=== PATIENT | male | born 1960 | race Caucasian/White ===

== ENCOUNTER 2018-12-31 19:49 | Observation (INO) ==
[2018-12-31 21:43] LABS: Hematocrit 47.2 % (37.5-50.1); Hemoglobin 16.1 g/dL (12.9-16.9); Mean Corpuscular HGB Conc 34.1 g/dL (31.6-35.5); Mean Corpuscular Hemoglobin 29.7 pg (28.0-33.3); Mean Corpuscular Volume 87.1 fL (83.0-100.0); Mean Platelet Volume 10.2 fL (9.4-12.4); Platelet Count 260 K/mcL (140-400); Red Blood Count 5.42 M/mcL (4.19-5.50); Red Cell Distribution Width 13.2 % (11.5-14.5)
--- NOTE | 2018-12-31 22:02 | Emergency Department Note ---
Disposition Clinical Impression: Pyelonephritis Chest pain Qualifiers: Chest pain type: unspecified Qualified Code(s): R07.9 - Chest pain, unspecified Disposition: Admitted As Inpatient Condition: Good Referrals: Jose Wilson MD [Primary Care Provider] - Forms: ED Satisfaction Letter Time of Disposition: 23:48 General Adult HPI - General Chief complaint: ED Fever Stated complaint: high fever has fluid on brain Time Seen by Provider: 12/31/18 20:22 Source: patient Limitations: no limitations Nursing Notes Reviewed: Yes Vital Signs Reviewed: Yes - History of Present Illness HPI Narrative: Patient complains of chills and breaking out into a sweat with some vague chest pain a couple hours ago at home. No prodromal symptoms this morning or this afternoon. 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 He has no new headache, no nausea, no new neurological symptoms today. Again his only new symptoms are chest pain and diaphoresis which has now resolved. On my examination he is at baseline Onset (ago): hour(s) Location: chest Radiation: non-radiation Pain Severity: mild Pain Scale: 1 Quality: aching Consistency: intermittent, now resolved Improves with: nothing Worsens with: nothing Associated symptoms: Reports: chest pain, diaphoresis. Denies: cough, loss of appetite, malaise, nausea/vomiting - Related Data Allergies Allergy/AdvReac Type Severity Reaction Status Date / Time No Known Allergies Allergy Verified 12/31/18 20:35 Constitutional: Reports: fever, chills Eyes: Denies: eye pain, eye discharge, vision change ENT ED: Denies: ear pain, throat pain, dental pain, hearing loss, epistaxis, con gestion, dysphagia Cardiovascular: Reports: chest pain Respiratory: Denies: cough, dyspnea, wheezes, hemoptysis, stridor Gastrointestinal: Denies: abdominal pain, nausea, vomiting, diarrhea, constipation, hematemesis, melena, hematochezia Genitourinary: Denies: urgency, dysuria, frequency, hematuria Musculoskeletal: Denies: back pain, neck pain, arthralgia, myalgia Integumentary: Denies: rash, abrasion, lesions Neurological: Denies: headache, weakness, numbness, paresthesias, confusion, abnormal gait, vertigo Psychiatric: Denies: anxiety, depression, suicidal thoughts, homicidal thoughts, auditory hallucinations, visual hallucinations Endocrine: Denies: fatigue Hematological/Lymphatic: Denies: easy bleeding, easy bruising Allergic/Immunologic: Denies: facial swelling, urticaria Past Medical History - Past Medical History Medical history: Reports: hypertension - Social History Smoking Status: Never smoker Smokeless Tobacco Status: No Alcohol use: Reports: none Drug use: Reports: none Physical Exam - General Limitations: no limitations General appearance: alert, in no apparent distress - Head Head exam: atraumatic, normocephalic, normal inspection - Eye Eye exam: Present: normal appearance, PERRL, EOMI - Expanded Eye Exam Pupils: Left: reactive - ENT ENT exam: normal exam, normal oropharynx, mucous membranes moist - Expanded ENT Exam External ear exam: Present: normal external inspection Mouth exam: Present: normal external inspection Teeth exam: Present: normal inspection Throat exam: Present: normal inspection - Neck Neck exam: Present: normal inspection, full ROM, trachea midline - Chest Chest inspection: Present: normal inspection, symmetric chest wall rise - Respiratory Respiratory exam: Present: normal lung sounds bilaterally - Cardiovascular Cardiovascular exam: Present: regular rate, normal rhythm, normal heart sounds - Abdominal Exam Abdominal exam: Present: soft, Non-Tender. Absent: tenderness, distention, guarding, rebound, rigidity - Extremities Exam Extremities exam: Present: normal inspection, full ROM. Absent: tenderness, pedal edema - Expanded Upper Extremity Exam Shoulder exam: Present: normal inspection, full ROM Arm exam: Present: normal inspection, full ROM Elbow exam: Present: normal inspection, full ROM Forearm/Wrist exam: Present: normal inspection, full ROM Hand exam: Present: normal inspection, full ROM Vascular exam: Normal: capillary refill, radial pulse - Expanded Lower Extremity Exam Hip/Pelvis exam: Present: normal inspection, full ROM Upper leg exam: Present: normal inspection, full ROM Knee exam: Present: normal inspection, full ROM Lower leg exam: Present: normal inspection, full ROM Ankle exam: Present: normal inspection, full ROM Foot/toe exam: Present: normal inspection, full ROM Neurovascular/Tendon exam: Absent: motor deficit, sensory deficit, tendon deficit - Back Exam Back exam: Present: normal inspection, full ROM. Absent: tenderness - Neurological Exam Neurological exam: Present: alert, oriented X3 - Expanded Neurological Exam Patient oriented to: Present: person, place, time Coma Scale Eye Opening: Spontaneous Coma Scale Motor Response: Obeys Commands Coma Scale Verbal Response: Oriented Coma Scale Total: 15 - Psychiatric Psychiatric exam: Present: normal affect, normal mood - Skin Skin exam: Present: warm, dry, intact, normal color Course Vital Signs Temperature 99.7 F H 12/31/18 20:30 Pulse Rate 105 12/31/18 20:30 Respiratory Rate 18 12/31/18 20:30 Blood Pressure 155/93 12/31/18 20:30 O2 Sat by Pulse Oximetry 97 12/31/18 20:30 Temperature 99.7 F H 12/31/18 20:30 Pulse Rate 105 12/31/18 20:30 Respiratory Rate 18 12/31/18 20:30 Blood Pressure 155/93 12/31/18 20:30 O2 Sat by Pulse Oximetry 97 12/31/18 20:30 Oxygen Delivery Oxygen Delivery Room Air Medical Decision Making - Lab Data Result diagrams: 12/31/18 21:27 12/31/18 21:27 Lab Results 12/31/18 12/31/18 12/31/18 Range/Units 21:27 21:27 21:27 WBC 19.5 H (4.3-11.1) K/mcL RBC 5.42 (4.19-5.50) M/mcL Hgb 16.1 (12.9-16.9) g/dL Hct 47.2 (37.5-50.1) % MCV 87.1 (83.0-100.0) fL MCH 29.7 (28.0-33.3) pg MCHC 34.1 (31.6-35.5) g/dL RDW 13.2 (11.5-14.5) % Plt Count 260 (140-400) K/mcL MPV 10.2 (9.4-12.4) fL Sodium 138 (136-145) mEq/L Potassium 3.3 L (3.5-5.1) mEq/L Chloride 102 (98-107) mEq/L Carbon Dioxide 23 (23-29) mEq/L BUN 15 (6-20) mg/dL Creatinine 1.06 (0.70-1.30) mg/dL Est GFR ( Amer) > 60 (> 60) Est GFR (Non-Af Amer) > 60 (> 60) BUN/Creatinine Ratio 14 (6-26) Glucose 128 H (70-105) mg/dL Calculated Osmolality 288 (280-300) Lactic Acid 1.9 (0.5-2.2) mmol/L Calcium 9.4 (8.6-10.3) mg/dL Total Bilirubin 0.8 (0.3-1.0) mg/dL Direct Bilirubin 0.1 (0.0-0.2) mg/dL Indirect Bilirubin 0.7 (0.0-1.2) mg/dL AST 25 (13-39) Units/L ALT 55 H (7-52) Units/L Alkaline Phosphatase 109 H (34-104) Units/L Troponin I < 0.03 (< 0.04) ng/mL Serum Total Protein 7.0 (6.4-8.9) g/dL Albumin 4.8 (3.5-5.7) g/dL Globulin 2.2 L (2.4-3.5) g/dL Albumin/Globulin Ratio 2.2 (1.1-2.2) Lipase 21 (11-82) Units/L Urine Color (Yellow) Urine Clarity (Clear) Urine pH (5.0-8.0) pH Units Ur Specific [place] (1.010-1.025) Urine Protein (Neg-Trace) mg/dL Urine Glucose (UA) (Normal) mg/dL Urine Ketones (Negative) mg/dL Urine Blood (Negative) Urine Nitrite (Negative) Urine Bilirubin (Negative) Urine Urobilinogen (Normal) mg/dL Ur Leukocyte Esterase (Negative) Urine Microscopic RBC (0-3) per hpf Urine Microscopic WBC (0-3) per hpf Ur Squamous Epith Cells (None-Few) per lpf Urine Bacteria (None-Few) per hpf 12/31/18 Range/Units 22:15 WBC (4.3-11.1) K/mcL RBC (4.19-5.50) M/mcL Hgb (12.9-16.9) g/dL Hct (37.5-50.1) % MCV (83.0-100.0) fL MCH (28.0-33.3) pg MCHC (31.6-35.5) g/dL RDW (11.5-14.5) % Plt Count (140-400) K/mcL MPV (9.4-12.4) fL Sodium (136-145) mEq/L Potassium (3.5-5.1) mEq/L Chloride (98-107) mEq/L Carbon Dioxide (23-29) mEq/L BUN (6-20) mg/dL Creatinine (0.70-1.30) mg/dL Est GFR ( Amer) (> 60) Est GFR (Non-Af Amer) (> 60) BUN/Creatinine Ratio (6-26) Glucose (70-105) mg/dL Calculated Osmolality (280-300) Lactic Acid (0.5-2.2) mmol/L Calcium (8.6-10.3) mg/dL Total Bilirubin (0.3-1.0) mg/dL Direct Bilirubin (0.0-0.2) mg/dL Indirect Bilirubin (0.0-1.2) mg/dL AST (13-39) Units/L ALT (7-52) Units/L Alkaline Phosphatase (34-104) Units/L Troponin I (< 0.04) ng/mL Serum Total Protein (6.4-8.9) g/dL Albumin (3.5-5.7) g/dL Globulin (2.4-3.5) g/dL Albumin/Globulin Ratio (1.1-2.2) Lipase (11-82) Units/L Urine Color Dark Yellow (Yellow) Urine Clarity Cloudy A (Clear) Urine pH 6.0 (5.0-8.0) pH Units Ur Specific [place] 1.024 (1.010-1.025) Urine Protein 30 H (Neg-Trace) mg/dL Urine Glucose (UA) Normal (Normal) mg/dL Urine Ketones Trace H (Negative) mg/dL Urine Blood Negative (Negative) Urine Nitrite Negative (Negative) Urine Bilirubin Small H (Negative) Urine Urobilinogen 2.0 H (Normal) mg/dL Ur Leukocyte Esterase Moderate H (Negative) Urine Microscopic RBC 0-3 (0-3) per hpf Urine Microscopic WBC 5-15 H (0-3) per hpf Ur Squamous Epith Cells Many H (None-Few) per lpf Urine Bacteria Many H (None-Few) per hpf
[2018-12-31 22:04] LABS: BUN/Creatinine Ratio 14 (6-26); Blood Urea Nitrogen 15 mg/dL (6-20); Calcium 9.4 mg/dL (8.6-10.3); Carbon Dioxide 23 mEq/L (23-29); Chloride 102 mEq/L (98-107); Glucose 128 mg/dL (70-105); Osmolality,Calculated 288 (280-300); Potassium 3.3 mEq/L (3.5-5.1); Sodium 138 mEq/L (136-145); eGFR For Non-African Americans > 60 (> 60)
[2018-12-31 22:05] LABS: Troponin I < 0.03 ng/mL (< 0.04)
[2018-12-31 22:29] LABS: Bilirubin,Urine Small (Negative); Blood,Urine Negative (Negative); Clarity,Urine Cloudy (Clear); Color,Urine Dark Yellow (Yellow); Glucose,Urine (UA) Normal (Normal); Ketones,Urine Trace mg/dL (Negative); Leukocyte Esterase,Urine Moderate (Negative); Nitrite,Urine Negative (Negative); Protein,Urine 30 mg/dL (Neg-Trace); Specific Gravity,Urine 1.024 (1.010-1.025)
[2018-12-31 22:31] LABS: Bacteria,Urine Many per hpf (None-Few); RBC,Urine 0-3 per hpf (0-3); Squamous Epithelial Cell,Urine Many per lpf (None-Few)
[2018-12-31 23:11] LABS: Alanine Aminotransferase 55 Units/L (7-52); Albumin 4.8 g/dL (3.5-5.7); Albumin/Globulin Ratio 2.2 (1.1-2.2); Alkaline Phosphatase 109 Units/L (34-104); Aspartate Amino Transferase 25 Units/L (13-39); Bilirubin,Direct 0.1 mg/dL (0.0-0.2); Bilirubin,Indirect 0.7 mg/dL (0.0-1.2); Bilirubin,Total 0.8 mg/dL (0.3-1.0); Globulin 2.2 g/dL (2.4-3.5); Lipase 21 Units/L (11-82)
[2018-12-31] MEDS ORDERED: levoFLOXacin 500 MG TABLET PO ONE (23:38)
[2018-12-31] MEDS ORDERED: Aspirin 325 MG TABLET PO ONE (23:38)
[2018-12-31] MEDS ORDERED: cefTRIAXone 1,000 MG in 0.9 % Sodium Chloride Mini Bag 100 ML IVPB ONE (23:55)
[2019-01-01] MEDS ORDERED: Naloxone 0.4 MG/ML INJ IVP PRN (07:46)
[2019-01-01] MEDS ORDERED: traMADol 50 MG TABLET PO PRN (07:46)
[2019-01-01 07:55] VITALS: BP 151/79
[2019-01-01 08:42] LABS: Chol/HDL Ratio 3.7 (0-4.9)
--- NOTE | 2019-01-01 08:59 | Internal Med History&Physical ---
Date of Encounter: 01/01/19 Time of Encounter: 08:56 Internal Medicine - H&P: HPI Chief complaint: chills/fever. Plans for Post Hospital Care: Home History of present illness: Mr. Wheeler is a 58 year old male PHM of HTN and a benign brain tumor. Patient presented to the ED due to chills/fever. Patient reports yesterday at around 3pm he started feeling some cold chills, her granddaughter checked his temperature and it was 101.5. and the decided to come to the ED to be checked. Patient denies dysuria, frequency or urgency but report supra-pubic abdominal pain for the past couple of days. He denies nausea or vomiting. Denies chest pain or s hortness of breath. denies sick contacts. Past Med Surg Social Fam HX - Past Medical History Medical history: hypertension - Past Surgical History Additional surgical history: brain surgery in the cerebellum, cyst on groin removed - Social History Smoking Status: Never smoker Smokeless Tobacco Status: Yes Alcohol use: none Drug use: none Internal Medicine - H&P: Meds Allergy/AdvReac Type Severity Reaction Status Date / Time No Known Allergies Allergy Verified 12/31/18 20:35 All Systems PM: A 10-system review of systems was performed and is negative for pertinent findings except as documented above in the HPI. - Constitutional Constitutional: chills, fever(s), malaise, no weakness - EENT Eyes: no irritation, no tunnel vision - Cardiovascular Cardiovascular ROS IM: no chest pain, no dyspnea, no dyspnea on exertion, no lightheadedness, no orthopnea, no palpitations, no paroxysmal nocturnal dyspnea - Respiratory Respiratory: no cough, no hemoptysis, no chest congestion - Gastrointestinal Gastrointestinal: no abdominal pain, no nausea, no vomiting - Genitourinary Genitourinary ROS male: no dysuria, no urinary frequency, no urinary hesitancy, no urinary incontinence, no urinary urgency - Musculoskeletal Musculoskeletal ROS IM: no atrophy, no numbness, no tingling - Integumentary Integumentary IM: no erythema - Neurological Neurological ROS: no frequent falls - Psychiatric Psychiatric: no anhedonia, no depression, no irritability - Endocrine Endocrine IM: no cold intolerance, no excessive sweating - Hematologic/Lymphatic Hematologic/Lymphatic: no lymphadenopathy - Allergic/Immunologic Allergic/Immunologic: no GI upset with certain foods - Constitutional Vitals: Temp Pulse Resp BP Pulse Ox 98.0 F 80 15 151/79 95 01/01/19 07:51 01/01/19 07:51 01/01/19 07:51 01/01/19 07:51 01/01/19 07:51 Exam: Vitals: Reviewed General: Obese, Alert and oriented x4. In no distress. Skin: Normal color, no rash, no lesions. HEENT: EOM, pupils equal, round and reactive. Cardiovascular: RRR, normal S1 & S2, no rubs, murmurs or gallops. Lungs: CTA b/l, no wheezes or crackles. Abdomen: Soft, non-tender, no rigidity. Extremities: No deformity, no edema or tenderness, no joint swelling or clubb ing. Neurological: Normal cognition and motor skills. Rest of the physical exam is non contributory Internal Med - H&P Results - Labs CBC & Chem 7: 12/31/18 21:27 12/31/18 21:27 Labs: Short CBC 12/31/18 Range/Units 21:27 WBC 19.5 H (4.3-11.1) K/mcL Hgb 16.1 (12.9-16.9) g/dL Hct 47.2 (37.5-50.1) % Plt Count 260 (140-400) K/mcL BMP 12/31/18 21:27 Sodium 138 Potassium 3.3 L Chloride 102 Carbon Dioxide 23 BUN 15 Creatinine 1.06 Glucose 128 H Calcium 9.4 Cardiac Enzymes 12/31/18 01/01/19 Range/Units 21:27 08:14 Troponin I < 0.03 < 0.03 (< 0.04) ng/mL Liver Function 12/31/18 Range/Units 21:27 Total Bilirubin 0.8 (0.3-1.0) mg/dL Direct Bilirubin 0.1 (0.0-0.2) mg/dL AST 25 (13-39) Units/L ALT 55 H (7-52) Units/L Alkaline Phosphatase 109 H (34-104) Units/L Albumin 4.8 (3.5-5.7) g/dL Urine 12/31/18 Range/Units 22:15 Urine Color Dark Yellow (Yellow) Urine Clarity Cloudy A (Clear) Urine pH 6.0 (5.0-8.0) pH Units Ur Specific [place] 1.024 (1.010-1.025) Urine Protein 30 H (Neg-Trace) mg/dL Urine Glucose (UA) Normal (Normal) mg/dL - Impressions ITS Impressions Chest X-Ray 12/31/18 21:32 IMPRESSION: Clear lungs. D/ / Kevin Gutierrez MD / Kevin Gutierrez MD Interpreting Provider: Kevin Gutierrez MD - Diagnostic Studies Chest x-ray Status: image reviewed by me (no inflitrates) - Assessment and Plan (1) Urinary tract infection Current Visit: Yes Status: Acute Assessment and plan: patient started on ceftriaxone 1mg/IV daily. urine culture. Qualifiers: Urinary tract infection type: site unspecified Hematuria presence: without hematuria Qualified Code(s): N39.0 - Urinary tract infection, site not specified (2) DVT prophylaxis Current Visit: Yes Status: Chronic Assessment and plan: heparin subq (3) HTN (hypertension) Current Visit: Yes Status: Chronic Assessment and plan: will continue home medication after verified by the pharmacy. Qualifiers: Hypertension type: unspecified Qualified Code(s): I10 - Essential (primary) hypertension (4) Chest pain Current Visit: Yes Status: Resolved Assessment and plan: during my evaluation the patient denies chest pain. and has not have chest pain or shortness of breath since he has been in the hospital. recommended to make an appointment to see a door repairer bus as outpatient. Qualifiers: Chest pain type: unspecified Qualified Code(s): R07.9 - Chest pain, unspecified - Time Spent With Patient Total time spent is greater than 50% in coordination of care (as documented) at patient's floor/unit and/or counseling patient: Greater than 35 minutes (45)
--- NOTE | 2019-01-01 09:07 | Event Note ---
Date of Encounter: 01/01/19 Time of Encounter: 09:04 Patient requesting to be discharge home today as he was told last night. He is hemodynamically stable, afebrile since he has been in the hospital. will discharge the patient on oral antibiotics. Recommended to follow up with his PCP within a week. Recommended that is his symptoms return to come back to the ED.
[2019-01-01] MEDS ORDERED: *HR* Heparin 5,000 UNIT/ML VIAL SQ SCH (14:00)
--- NOTE | 2019-01-01 16:15 | Electrocardiograph Report ---
[place] [id number] Test Date: 2018-12-31 Pat Name: Franco Wheeler Department: [id number] Room: 3A55 Gender: M [employer] Installation Helper: : [id number] Requested By: You Graham Order Number: [id number] Reading MD: Lali Saenz Measurements Intervals [place] Rate: 96 P: 47 WV: 170 QRS: 238 QRSD: 95 T: 42 QT: 360 QTc: 455 Interpretive Statements Sinus rhythm Probable left atrial enlargement Electronically Signed On 01-01-2019 16:13:54 EDT by Lali Saenz
[2019-01-01] MEDS ORDERED: cefTRIAXone 1,000 MG in Water for inj. (sterile) 20 ML 10 ML IVP SCH (23:00)
== END 2019-01-01 11:02 | disposition home or self-care (01) ==
LOC: 3ANU 19:49 → EMEROOARM 19:49 → 3ANU 01-01 01:08
PROVIDERS: ADMIT Pediatrics; ATTEND Pediatrics